=== PATIENT | female | born 1940 | race Caucasian/White ===

== ENCOUNTER 2023-06-18 11:40 | Inpatient (IN) | payer BC ==
[~2023-06-18] VITALS: Ht 162.6 cm; Wt 67.1 kg
[2023-06-18] MEDS ORDERED: BACL10TA PO (12:21)
[2023-06-18] MEDS ORDERED: SITA100T PO (12:21)
[2023-06-18] MEDS ORDERED: CHOL100043 PO (12:21)
[2023-06-18] MEDS ORDERED: LISI10TA29 PO (12:21)
[2023-06-18] MEDS ORDERED: LOVA40TA2 PO (12:21)
[2023-06-18] MEDS ORDERED: MODAFINIL PO (12:21)
[2023-06-18] MEDS ORDERED: DIET1CAP4 PO (12:21)
[2023-06-18] MEDS ORDERED: CALC1TAB30 PO (12:21)
[2023-06-18] MEDS ORDERED: OMEG-209 PO (12:21)
[2023-06-18] MEDS ORDERED: ALEN70TA80 PO (12:21)
[2023-06-18] MEDS ORDERED: VIT1CAPS44 PO (12:21)
[2023-06-18] MEDS ORDERED: AUBAGIO PO (12:21)
[2023-06-18] MEDS ORDERED: HYDR-3972 PO (12:21)
[2023-06-18] MEDS ORDERED: LEVO75TA7 PO (12:21)
[2023-06-18] MEDS ORDERED: MULT-1095 PO (12:21)
[2023-06-18] MEDS ORDERED: TRAM50TA2 PO (12:22)
[2023-06-18 13:00] LABS: BASOPHILS % (AUTO) 0.2 % (0.0-2.0); EOSINOPHILS % (AUTO) 0.4 % (0.0-6.0); HEMATOCRIT 43 % (33-45); HEMOGLOBIN 13.2 g/dL (11.5-14.8); LYMPHOCYTES # (AUTO) 1.1 K/uL (0.8-4.8); MEAN CORPUSCULAR HEMOGLOBIN 29 PG (26.0-33.0); MEAN CORPUSCULAR HGB CONC 31 g/dl (31.0-36.0); MEAN CORPUSCULAR VOLUME 93 fL (82-100); MONOCYTES # (AUTO) 0.7 K/uL (0.1-1.30); MONOCYTES % (AUTO) 7.4 % (2.0-12.0); NEUTROPHILS # (AUTO) 7.6 K/uL (1.8-8.9); PLATELET COUNT (AUTO) 253 K/uL (150-450); RED BLOOD CELL COUNT(AUTO) 4.55 MIL/uL (4.0-5.2); WHITE BLOOD COUNT (AUTO) 9.5 K/uL (4.3-11.0)
[2023-06-18 13:27] LABS: LACTIC ACID 2.2 mmol/L (0.4-2.0)
[2023-06-18 13:28] LABS: NT-PRO BNP 7683 pg/mL (0-125)
[2023-06-18 13:40] LABS: ERYTHROCYTE SEDIMENTATION RATE 34 MM/HR (0-30)
[2023-06-18 13:45] LABS: CALCIUM, SERUM 9.4 mg/dL (8.5-10.1); CREATININE 0.9 mg/dL (0.6-1.3); POTASSIUM 5.1 mmol/L (3.5-5.1)
[2023-06-18 13:51] LABS: ALBUMIN 3.3 g/dL (3.4-5.0); BILIRUBIN,TOTAL 0.3 mg/dL (0.2-1.0); TOTAL PROTEIN, SERUM 7.6 g/dL (6.4-8.2)
[2023-06-18 13:57] LABS: C-REACTIVE PROTEIN 2.3 mg/dL (0.0-0.9)
[2023-06-18] MEDS ORDERED: FUROSEMIDE 40 MG/4 ML VIAL IV ONE (14:30)
[2023-06-18] MEDS ORDERED: VANCOMYCIN 1 GM in IV D5W 250 ML IV ONE (14:30)
[2023-06-18] MEDS ORDERED: MEROPENEM 1,000 MG in IV NS 0.9% 100 ML IV ONE (14:30)
[2023-06-18] MEDS ORDERED: FUROSEMIDE 40 MG/4 ML VIAL ONE (15:09)
[2023-06-18] MEDS ORDERED: VANCOMYCIN 1 GM /D5W 250 ML PB IV ONE (15:10)
[2023-06-18] MEDS ORDERED: CT SWABBABLE VALVE TRANS SET 1 EA INFUS.SET MC ONE (15:13)
[2023-06-18] MEDS ORDERED: IOHEXOL-350 100 ML VIAL IV ONE (15:13)
[2023-06-18] MEDS ORDERED: IV NS 0.9% 250 ML IV ONE (15:13)
[2023-06-18] MEDS ORDERED: ALENDRONATE 70 MG TABLET PO SCH (15:30)
[2023-06-18] MEDS ORDERED: ACETAMINOPHEN 325 MG TABLET PO PRN (15:30)
[2023-06-18] MEDS ORDERED: HYDROCODONE/APAP 5/325MG TABLET PO PRN (15:30)
[2023-06-18] MEDS ORDERED: DEXTROSE 50%-WATER 50 ML DISP.SYRIN IV PRN (15:30)
[2023-06-18 16:19] LABS: BILIRUBIN,DIRECT 0.1 mg/dL (0.0-0.2)
[2023-06-18 16:28] LABS: LACTIC ACID REFLEX 2.3 mmol/L (0.4-1.9)
[2023-06-18] MEDS ORDERED: Medication Not On Formulary EA (Vit C/E/Zn/Coppr/Lutein/Zeaxan (Preservision Areds 2 Sof PO SCH (17:00)
[2023-06-18] MEDS: ATORVASTATIN 10 MG TABLET PO SCH (17:52)
[2023-06-18] MEDS: BACLOFEN (10 MG) 10 MG TABLET PO SCH (17:52)
[2023-06-18] MEDS: CLOPIDOGREL BISULFATE 75 MG TABLET PO SCH (17:52)
[2023-06-18] MEDS: MULTIVIT W/MINERALS 1 TAB TABLET PO SCH (17:52)
[2023-06-18] MEDS ORDERED: ENOXAPARIN SODIUM 60 MG/0.6 ML DISP.SYRIN SQ SCH (18:00)
[2023-06-18] MEDS: INSULIN REGULAR, HUMAN 100 UNIT/ML 3 ML VIAL SQ PRN ×2 (18:03→21:21)
[2023-06-18] MEDS: BLOOD SUGAR DIAGNOSTIC 1 EACH STRIP VI SCH ×2 (18:03→21:23)
[2023-06-18] MEDS: DOXYCYCLINE HYCLATE (100 MG) 100 MG TABLET PO SCH (18:05)
[2023-06-18 18:38] VITALS: BP 110/80; TEMP 97.7; O2SAT 97
[2023-06-18 20:00] VITALS: BP 100/61; TEMP 98.2; O2SAT 92
[2023-06-18] MEDS ORDERED: CEFAZOLIN 1 GM in IV D5W 50 ML IV SCH (21:00)
[2023-06-18] MEDS: TRAMADOL HCL 50 MG TABLET PO PRN (21:19)
[2023-06-19] VITALS: BP 98/61; TEMP 97.5; O2SAT 93
[2023-06-19] MEDS ORDERED: APIXABAN 5 MG TABLET PO SCH
[2023-06-19 04:00] VITALS: BP 92/56; TEMP 97.6; O2SAT 95
[2023-06-19] MEDS ORDERED: ENOXAPARIN SODIUM 60 MG/0.6 ML DISP.SYRIN SQ SCH (06:00)
[2023-06-19 06:50] LABS: BASOPHILS # (AUTO) 0.1 K/uL (0.0-0.2); BASOPHILS % (AUTO) 0.7 % (0.0-2.0); EOSINOPHILS # (AUTO) 0.1 K/uL (0.0-0.7); EOSINOPHILS % (AUTO) 1.1 % (0.0-6.0); HEMATOCRIT 35 % (33-45); HEMOGLOBIN 11.8 g/dL (11.5-14.8); LYMPHOCYTES # (AUTO) 1.3 K/uL (0.8-4.8); LYMPHOCYTES % (AUTO) 14.8 % (20.0-44.0); MEAN CORPUSCULAR HEMOGLOBIN 29 PG (26.0-33.0); MEAN CORPUSCULAR HGB CONC 34 g/dl (31.0-36.0); MEAN CORPUSCULAR VOLUME 88 fL (82-100); MONOCYTES # (AUTO) 0.9 K/uL (0.1-1.30); MONOCYTES % (AUTO) 10.7 % (2.0-12.0); NEUTROPHILS # (AUTO) 6.4 K/uL (1.8-8.9); NEUTROPHILS % (AUTO) 72.7 % (43.0-81.0); PLATELET COUNT (AUTO) 248 K/uL (150-450); RED BLOOD CELL COUNT(AUTO) 4.01 MIL/uL (4.0-5.2); WHITE BLOOD COUNT (AUTO) 8.8 K/uL (4.3-11.0)
[2023-06-19 07:03] LABS: ALBUMIN 2.7 g/dL (3.4-5.0); BILIRUBIN,TOTAL 0.4 mg/dL (0.2-1.0); CALCIUM, SERUM 8.5 mg/dL (8.5-10.1); POTASSIUM 4.1 mmol/L (3.5-5.1); TOTAL PROTEIN, SERUM 6.5 g/dL (6.4-8.2)
[2023-06-19 07:15] LABS: THYROID STIMULATING HORMONE 2.361 uIU/mL (0.358-3.74)
[2023-06-19] MEDS: LEVOTHYROXINE SODIUM 75 MCG TABLET PO SCH (07:57)
[2023-06-19] MEDS: BLOOD SUGAR DIAGNOSTIC 1 EACH STRIP VI SCH ×4 (07:59→21:48)
[2023-06-19 08:00] VITALS: BP 103/67; TEMP 97.7; O2SAT 95
[2023-06-19] MEDS: INSULIN REGULAR, HUMAN 100 UNIT/ML 3 ML VIAL SQ PRN ×3 (08:01→16:58)
[2023-06-19] MEDS ORDERED: OMEGA PO SCH (09:00)
[2023-06-19] MEDS ORDERED: EPA PO SCH (09:00)
[2023-06-19] MEDS ORDERED: DIETARY SUPPLEMENT PO SCH (09:00)
[2023-06-19] MEDS ORDERED: FISH OIL PO SCH (09:00)
[2023-06-19] MEDS ORDERED: [UNRECOGNIZED DRUG - OTHER] PO SCH (09:00)
[2023-06-19] MEDS ORDERED: LISINOPRIL (10MG) 10 MG TABLET PO SCH (09:00)
[2023-06-19] MEDS ORDERED: TERIFLUNOMIDE PO SCH (09:00)
[2023-06-19] MEDS ORDERED: DHA PO SCH (09:00)
[2023-06-19] MEDS: BACLOFEN (10 MG) 10 MG TABLET PO SCH ×3 (10:01→17:01)
[2023-06-19] MEDS: CLOPIDOGREL BISULFATE 75 MG TABLET PO SCH (10:01)
[2023-06-19] MEDS: MULTIVIT W/MINERALS 1 TAB TABLET PO SCH ×2 (10:01→17:01)
[2023-06-19] MEDS: CALCIUM CARB 600MG /VIT D 1 EACH TABLET PO SCH (10:01)
[2023-06-19] MEDS: CHOLECALCIFEROL 1,000 UNIT TABLET (VIT D3) PO SCH (10:02)
[2023-06-19] MEDS: DOXYCYCLINE HYCLATE (100 MG) 100 MG TABLET PO SCH ×2 (10:02→17:02)
[2023-06-19] MEDS: LINAGLIPTIN 5 MG TABLET PO SCH (10:02)
[2023-06-19] MEDS: TRAMADOL HCL 50 MG TABLET PO PRN ×2 (10:48→18:11)
[2023-06-19 12:00] VITALS: BP 101/81; TEMP 98.9; O2SAT 95
[2023-06-19 16:00] VITALS: BP 115/72; TEMP 97.3; O2SAT 95
[2023-06-19] MEDS: BACITRACIN ZINC OINT (15 GM) 15 GM TUBE TP SCH (17:02)
[2023-06-19] MEDS: ATORVASTATIN 10 MG TABLET PO SCH (17:03)
[2023-06-19] MEDS: ENOXAPARIN SODIUM 80 MG/0.8 ML DISP.SYRIN SQ SCH (17:11)
[2023-06-19 20:00] VITALS: BP 108/63; TEMP 97.9; O2SAT 95
[2023-06-19] MEDS: *INSULIN REGULAR(HUMULIN R)HUM 100 UNIT/ML VIAL SQ PRN (21:50)
[2023-06-20] VITALS: BP 111/64; TEMP 97.6; O2SAT 90
[2023-06-20 04:00] VITALS: BP 135/52; TEMP 97.5; O2SAT 94
[2023-06-20 06:00] LABS: CALCIUM, SERUM 8.3 mg/dL (8.5-10.1); CARBON DIOXIDE 25 mmol/L (21-32); CHLORIDE 102 mmol/L (98-107); GLUCOSE 113 mg/dL (74-106); POTASSIUM 4.6 mmol/L (3.5-5.1); SODIUM SERUM 137 mmol/L (136-145); UREA NITROGEN, BLOOD 22 mg/dL (7-18)
[2023-06-20] MEDS: ENOXAPARIN SODIUM 80 MG/0.8 ML DISP.SYRIN SQ SCH (06:22)
[2023-06-20 08:00] VITALS: BP 124/79; TEMP 99.1; O2SAT 96
[2023-06-20] MEDS: BLOOD SUGAR DIAGNOSTIC 1 EACH STRIP VI SCH ×4 (08:08→22:32)
[2023-06-20] MEDS: CALCIUM CARB 600MG /VIT D 1 EACH TABLET PO SCH (08:30)
[2023-06-20] MEDS: CLOPIDOGREL BISULFATE 75 MG TABLET PO SCH (08:30)
[2023-06-20] MEDS: LINAGLIPTIN 5 MG TABLET PO SCH (08:30)
[2023-06-20] MEDS: LEVOTHYROXINE SODIUM 75 MCG TABLET PO SCH (08:30)
[2023-06-20] MEDS: CHOLECALCIFEROL 1,000 UNIT TABLET (VIT D3) PO SCH (08:31)
[2023-06-20] MEDS: MULTIVIT W/MINERALS 1 TAB TABLET PO SCH ×2 (08:31→16:07)
[2023-06-20] MEDS: DOXYCYCLINE HYCLATE (100 MG) 100 MG TABLET PO SCH ×2 (08:31→16:07)
[2023-06-20] MEDS: BACLOFEN (10 MG) 10 MG TABLET PO SCH ×3 (08:31→16:07)
[2023-06-20] MEDS: BACITRACIN ZINC OINT (15 GM) 15 GM TUBE TP SCH ×2 (09:32→16:18)
[2023-06-20] MEDS: PROSOURCE / PROSTAT (PYXIS) 30 ML UDC PO SCH ×2 (09:52→16:35)
[2023-06-20] MEDS: APIXABAN 5 MG TABLET PO SCH ×2 (10:13→16:09)
[2023-06-20 12:00] VITALS: BP 112/66; TEMP 98.5; O2SAT 96
[2023-06-20 12:07] LABS: *SPE A/G RATIO 0.8 (0.7-1.7); *SPE ALBUMIN 2.7 g/dL (2.9-4.4); *SPE ALPHA-1-GLOBULIN 0.3 g/dL (0.0-0.4); *SPE ALPHA-2-GLOBULIN 1.3 g/dL (0.4-1.0); *SPE BETA GLOBULIN 0.9 g/dL (0.7-1.3); *SPE GLOBULIN, TOTAL 3.3 g/dL (2.2-3.9); *SPE M-SPIKE Not Observed g/dL (Not Observed); *SPEGAMMA GLOBULIN 0.8 g/dL (0.4-1.8)
[2023-06-20] MEDS: TERIFLUNOMIDE 7 MG PO SCH (13:02)
[2023-06-20] MEDS: FLUTICASONE PROPIONATE 16 GM BOTTLE NS SCH (13:03)
[2023-06-20 16:00] VITALS: BP 126/75; TEMP 98.4; O2SAT 96
[2023-06-20] MEDS: ATORVASTATIN 10 MG TABLET PO SCH (18:07)
[2023-06-20 20:00] VITALS: BP 100/64; TEMP 98.1; O2SAT 95
[2023-06-20] MEDS: *INSULIN REGULAR(HUMULIN R)HUM 100 UNIT/ML VIAL SQ PRN (22:33)
[2023-06-21] VITALS: BP 100/74; TEMP 98.4; O2SAT 96
[2023-06-21 04:00] VITALS: BP 134/74; TEMP 97.6; O2SAT 97
[2023-06-21] MEDS: LEVOTHYROXINE SODIUM 75 MCG TABLET PO SCH (07:38)
[2023-06-21 08:00] VITALS: BP 122/76; TEMP 97.8; O2SAT 97
[2023-06-21] MEDS: INSULIN REGULAR, HUMAN 100 UNIT/ML 3 ML VIAL SQ PRN (08:01)
[2023-06-21] MEDS: BLOOD SUGAR DIAGNOSTIC 1 EACH STRIP VI SCH ×4 (08:02→21:34)
[2023-06-21] MEDS: FLUTICASONE PROPIONATE 16 GM BOTTLE NS SCH (08:02)
[2023-06-21] MEDS: CHOLECALCIFEROL 1,000 UNIT TABLET (VIT D3) PO SCH (08:23)
[2023-06-21] MEDS: LINAGLIPTIN 5 MG TABLET PO SCH (08:23)
[2023-06-21] MEDS: MULTIVIT W/MINERALS 1 TAB TABLET PO SCH ×2 (08:23→17:53)
[2023-06-21] MEDS: CALCIUM CARB 600MG /VIT D 1 EACH TABLET PO SCH (08:23)
[2023-06-21] MEDS: BACLOFEN (10 MG) 10 MG TABLET PO SCH ×3 (08:23→17:53)
[2023-06-21] MEDS: TERIFLUNOMIDE 7 MG PO SCH (08:23)
[2023-06-21] MEDS: CLOPIDOGREL BISULFATE 75 MG TABLET PO SCH (08:23)
[2023-06-21] MEDS: DOXYCYCLINE HYCLATE (100 MG) 100 MG TABLET PO SCH ×2 (08:23→17:53)
[2023-06-21] MEDS: APIXABAN 5 MG TABLET PO SCH ×2 (08:26→17:55)
[2023-06-21] MEDS: PROSOURCE / PROSTAT (PYXIS) 30 ML UDC PO SCH ×2 (09:15→17:54)
[2023-06-21] MEDS: BACITRACIN ZINC OINT (15 GM) 15 GM TUBE TP SCH ×2 (09:16→17:56)
[2023-06-21 12:00] VITALS: BP 123/74; TEMP 97.7; O2SAT 97
[2023-06-21 16:22] VITALS: BP 120/70; TEMP 97.7; O2SAT 94
[2023-06-21] MEDS: ATORVASTATIN 10 MG TABLET PO SCH (17:53)
[2023-06-21 20:00] VITALS: BP 129/77; TEMP 97.3; O2SAT 98
[2023-06-21] MEDS ORDERED: BISACODYL (5 MG) 5 MG TABLET.DR PO ONE (22:00)
[2023-06-22 04:23] VITALS: BP 134/81; TEMP 97.9; O2SAT 95
[2023-06-22 07:06] LABS: BASOPHILS % (AUTO) 0.5 % (0.0-2.0); EOSINOPHILS # (AUTO) 0.2 K/uL (0.0-0.7); EOSINOPHILS % (AUTO) 2.8 % (0.0-6.0); HEMATOCRIT 38 % (33-45); HEMOGLOBIN 12.3 g/dL (11.5-14.8); LYMPHOCYTES # (AUTO) 1.2 K/uL (0.8-4.8); LYMPHOCYTES % (AUTO) 14.3 % (20.0-44.0); MEAN CORPUSCULAR HEMOGLOBIN 29 PG (26.0-33.0); MEAN CORPUSCULAR HGB CONC 33 g/dl (31.0-36.0); MEAN CORPUSCULAR VOLUME 90 fL (82-100); MONOCYTES # (AUTO) 0.9 K/uL (0.1-1.30); MONOCYTES % (AUTO) 9.9 % (2.0-12.0); NEUTROPHILS # (AUTO) 6.2 K/uL (1.8-8.9); NEUTROPHILS % (AUTO) 72.5 % (43.0-81.0); PLATELET COUNT (AUTO) 299 K/uL (150-450); RED BLOOD CELL COUNT(AUTO) 4.19 MIL/uL (4.0-5.2); RED CELL DISTRIBUTION WIDTH 17.1 % (11.5-15.0); WHITE BLOOD COUNT (AUTO) 8.6 K/uL (4.3-11.0)
[2023-06-22] MEDS: BLOOD SUGAR DIAGNOSTIC 1 EACH STRIP VI SCH ×4 (07:35→22:06)
[2023-06-22] MEDS: INSULIN REGULAR, HUMAN 100 UNIT/ML 3 ML VIAL SQ PRN ×3 (07:36→17:30)
[2023-06-22] MEDS: LEVOTHYROXINE SODIUM 75 MCG TABLET PO SCH (07:49)
[2023-06-22 08:09] LABS: CALCIUM, SERUM 8.5 mg/dL (8.5-10.1); CARBON DIOXIDE 22 mmol/L (21-32); CHLORIDE 104 mmol/L (98-107); CREATININE 0.8 mg/dL (0.6-1.3); GLUCOSE 113 mg/dL (74-106); POTASSIUM 4.3 mmol/L (3.5-5.1); SODIUM SERUM 136 mmol/L (136-145); UREA NITROGEN, BLOOD 17 mg/dL (7-18)
[2023-06-22] MEDS: MULTIVIT W/MINERALS 1 TAB TABLET PO SCH ×2 (08:26→16:29)
[2023-06-22] MEDS: CLOPIDOGREL BISULFATE 75 MG TABLET PO SCH (08:26)
[2023-06-22] MEDS: BACLOFEN (10 MG) 10 MG TABLET PO SCH ×3 (08:26→16:29)
[2023-06-22] MEDS: CHOLECALCIFEROL 1,000 UNIT TABLET (VIT D3) PO SCH (08:26)
[2023-06-22] MEDS: TERIFLUNOMIDE 7 MG PO SCH (08:26)
[2023-06-22] MEDS: FLUTICASONE PROPIONATE 16 GM BOTTLE NS SCH (08:26)
[2023-06-22] MEDS: LINAGLIPTIN 5 MG TABLET PO SCH (08:26)
[2023-06-22] MEDS: CALCIUM CARB 600MG /VIT D 1 EACH TABLET PO SCH (08:27)
[2023-06-22] MEDS: DOXYCYCLINE HYCLATE (100 MG) 100 MG TABLET PO SCH ×2 (08:27→16:29)
[2023-06-22] MEDS: APIXABAN 5 MG TABLET PO SCH ×2 (08:28→16:32)
[2023-06-22] MEDS: PROSOURCE / PROSTAT (PYXIS) 30 ML UDC PO SCH ×2 (08:29→16:32)
[2023-06-22] MEDS: BACITRACIN ZINC OINT (15 GM) 15 GM TUBE TP SCH ×2 (08:33→17:30)
[2023-06-22] MEDS ORDERED: APIX5TAB PO (09:13)
[2023-06-22 12:00] VITALS: BP 114/85; TEMP 98.1; O2SAT 97
[2023-06-22] MEDS: ATORVASTATIN 10 MG TABLET PO SCH (17:17)
[2023-06-22 20:00] VITALS: BP 139/78; TEMP 98.1; O2SAT 95
[2023-06-22] MEDS: *INSULIN REGULAR(HUMULIN R)HUM 100 UNIT/ML VIAL SQ PRN (22:07)
[2023-06-23 04:00] VITALS: BP 125/70; TEMP 97.5; O2SAT 94
[2023-06-23] MEDS: LEVOTHYROXINE SODIUM 75 MCG TABLET PO SCH (07:38)
[2023-06-23] MEDS: BLOOD SUGAR DIAGNOSTIC 1 EACH STRIP VI SCH ×3 (07:44→16:49)
[2023-06-23] MEDS: CHOLECALCIFEROL 1,000 UNIT TABLET (VIT D3) PO SCH (08:29)
[2023-06-23] MEDS: FLUTICASONE PROPIONATE 16 GM BOTTLE NS SCH (08:29)
[2023-06-23] MEDS: CALCIUM CARB 600MG /VIT D 1 EACH TABLET PO SCH (08:29)
[2023-06-23] MEDS: APIXABAN 5 MG TABLET PO SCH ×2 (08:30→16:42)
[2023-06-23] MEDS: CLOPIDOGREL BISULFATE 75 MG TABLET PO SCH (08:31)
[2023-06-23] MEDS: PROSOURCE / PROSTAT (PYXIS) 30 ML UDC PO SCH ×2 (08:31→16:43)
[2023-06-23] MEDS: DOXYCYCLINE HYCLATE (100 MG) 100 MG TABLET PO SCH ×2 (08:31→16:42)
[2023-06-23] MEDS: BACLOFEN (10 MG) 10 MG TABLET PO SCH ×3 (08:31→16:42)
[2023-06-23] MEDS: MULTIVIT W/MINERALS 1 TAB TABLET PO SCH ×2 (08:35→16:42)
[2023-06-23] MEDS: BACITRACIN ZINC OINT (15 GM) 15 GM TUBE TP SCH ×2 (08:35→16:43)
[2023-06-23] MEDS: LINAGLIPTIN 5 MG TABLET PO SCH (08:35)
[2023-06-23] MEDS: TERIFLUNOMIDE 7 MG PO SCH (08:35)
[2023-06-23] MEDS ORDERED: POLYVINYL ALCOHOL 15 ML BOTTLE EACHEYE PRN (09:00)
[2023-06-23 12:40] VITALS: BP 126/70; TEMP 97.5; O2SAT 94
[2023-06-23] MEDS: ATORVASTATIN 10 MG TABLET PO SCH (17:15)
[2023-06-27] MEDS ORDERED: APIXABAN 5 MG TABLET PO SCH (09:00)
== END 2023-06-23 20:20 | DRG 175 ==
LOC: ER 11:43 → TELE1 15:11 → MEDSG1 06-21 16:20
PROVIDERS: ADMIT Internal Medicine; ATTEND Internal Medicine
PROC: 05H533Z Insertion of Infusion Device into Right Subclavian Vein, Percutaneous Approach (ICD-10-PCS; principal; 2023-06-18)
PROC: B546ZZA Ultrasonography of Right Subclavian Vein, Guidance (ICD-10-PCS; 2023-06-18)
DX: I26.94 Multiple subsegmental thrombotic pulmonary emboli without acute cor pulmonale (principal); J96.21 Acute and chronic respiratory failure with hypoxia; U07.1 COVID-19; E87.20 Acidosis, unspecified; I82.412 Acute embolism and thrombosis of left femoral vein; I82.432 Acute embolism and thrombosis of left popliteal vein; E11.9 Type 2 diabetes mellitus without complications; E78.5 Hyperlipidemia, unspecified; I50.9 Heart failure, unspecified; I11.0 Hypertensive heart disease with heart failure; G35 Multiple sclerosis; Z79.84 Long term (current) use of oral hypoglycemic drugs; Z87.891 Personal history of nicotine dependence; Z88.0 Allergy status to penicillin; Z96.651 Presence of right artificial knee joint; E03.9 Hypothyroidism, unspecified; L89.616 Pressure-induced deep tissue damage of right heel; S91.001A Unspecified open wound, right ankle, initial encounter; X58.XXXA Exposure to other specified factors, initial encounter; Y93.9 Activity, unspecified; Y92.009 Unspecified place in unspecified non-institutional (private) residence as the place of occurrence of the external cause; Z74.09 Other reduced mobility; K44.9 Diaphragmatic hernia without obstruction or gangrene; K57.30 Diverticulosis of large intestine without perforation or abscess without bleeding; R79.89 Other specified abnormal findings of blood chemistry
CPT/HCPCS: 36415; 71045-TC; 73610-TC; 80048-TC; 80053-TC; 80061-TC; 82248-TC; 82962-TC; 83605-TC; 83880; 84155; 84165; 84443-TC; 84484-TC; 85025-TC; 85378-TC; 85652-TC; 86140-TC; 87040-TC; 93307-TC; 93970-TC; 97110-TC; 97530-TC; A4223; A6403; G0378; J1650; J1815; J1940; J2185; J3370; J7030; J7050; J7060; Q9967